=== PATIENT | male | born 1950 | race Caucasian/White ===

== ENCOUNTER 2016-11-28 19:45 | Emergency (ER) | payer BC ==
[~2016-11-28] VITALS: Ht 177.8 cm; Wt 110.0 kg
[2016-11-28 19:51] VITALS: TEMP 36.7; Ht 177.8 cm; Wt 110.0 kg
[2016-11-28 20:38] LABS: HEMATOCRIT 44.8 % (42-52); MEAN CELL VOLUME 88.9 fL (80-100); MEAN CORPUSCULAR HEMOGLOBIN 31.7 pg (25-34); MEAN CORPUSCULAR HGB CONC 35.7 g/dl (32-36); MEAN PLATELET VOLUME 10.9 fL (7.4-10.4); PLATELET COUNT 153 K/uL (130-400); RED BLOOD COUNT 5.04 M/uL (4.7-6.1); WHITE BLOOD COUNT 7.78 K/uL (4.8-10.8)
--- NOTE | 2016-11-28 20:39 | DIAGNOSTIC IMAGING REPORT ---
SINGLE VIEW CHEST CLINICAL HISTORY: Atypical chest pain. FINDINGS: An AP, portable, upright chest radiograph is obtained. No prior studies are available for comparison at the time of dictation. The examination is degraded by portable technique and patient rotation. The heart is mildly enlarged and there is atherosclerotic calcification of the thoracic aorta. The pulmonary vasculature is noncongested. Emphysema and interstitial thickening are identified. There is no airspace consolidation typical for pneumonia or large pleural effusion. Minimal atelectasis is seen at the left lung base. No pneumothorax is seen. The bony thorax is grossly intact. IMPRESSION: Cardiomegaly and emphysema with no acute cardiopulmonary abnormality. Electronically signed by: Tay Hendrickson M.D. 11/28/2016 8:37 PM Dictated Date/Time: 11/28/2016 8:36 PM
[2016-11-28 20:45] LABS: BUN/CREATININE RATIO 17.4 (10-20); CREATININE 1.5 mg/dl (0.60-1.40); POTASSIUM 3.8 mmol/L (3.5-5.1)
[2016-11-28 20:48] LABS: PROTHROMBIN TIME (PATIENT) 10.7 SECONDS (9.0-12.0)
[2016-11-28 20:49] LABS: ALB/GLOB RATIO 1.2 (0.9-2); CKMB/CK RATIO 1.6 (0-3.0)
[2016-11-28] MEDS ORDERED: TAMS0.4C38 PO (21:04)
[2016-11-28] MEDS ORDERED: ALLO300T2 PO (21:04)
[2016-11-28] MEDS ORDERED: SIMV20TA2 PO (21:04)
[2016-11-28] MEDS ORDERED: DUTA0.5C PO (21:04)
[2016-11-28] MEDS ORDERED: HYDR12.56 PO (21:04)
[2016-11-28] MEDS ORDERED: FLUT0.15 NAE (21:04)
[2016-11-28] MEDS ORDERED: OMEP40CA41 PO (21:04)
[2016-11-28] MEDS ORDERED: TERA1CAP63 PO (21:04)
--- NOTE | 2016-11-28 21:41 | EMERGENCY ROOM VISIT NOTE ---
History Report prepared by Tianna: Earl Cardozo Under the Supervision of: Dr. Tay Hicks M.D. First contact with patient: 21:24 Chief Complaint: CHEST PAIN Stated Complaint: CHEST PAIN Nursing Triage Summary: patient reports epigastric pain,patient reports recent diagnosis of esophageal varices with CT done a year ago with no liver issues History of Present Illness The patient is a 66 year old male who presents to the Emergency Room with complaints of intermittent chest pressure beginning two days prior to arrival. He currently rates his discomfort as a 2/10 in severity, but notes his discomfort is a 7/10 in severity during the episodes. The patient states he first experienced the discomfort two nights ago, when the chest pain woke him up from sleep and radiated to his back and lasted 1-2 hours. He notes he also experienced shortness of breath with the episode. The patient states he did not have any symptoms yesterday. He notes the chest pain returned this evening approximately thirty minutes after eating and lasted for fifteen minutes. The patient associates resolved chest pain that radiates to this back and resolved palpitations with today's symptoms. He states he had a scope performed two days ago, in which, varices in his throat were identified. He notes he has gallstones. He states he walks 2-3 miles a day without problems. The patient denies diaphoresis, shoulder pain, history of heart attacks, and a history of heart issues. Source of History: patient Onset: two days [employer] Position: chest Symptom Intensity: 2/10 Quality: pressure Timing: intermittent Associated Symptoms: + SOB, + back pain (chest pain radiating to his back), + chest pain, No diaphoresis Note: Associated symptoms: resolved palpitations. Review of Systems See HPI for pertinent positives & negatives. A total of 10 systems reviewed and were otherwise negative. Past Medical & Surgical Medical Problems: (1) Gall stones (2) Varices of esophagus determined by endoscopy Family History Patient reports no known family medical history. Social History Smoking Status: Never Smoker Marital Status: Occupation Status: employed Current/Historical Medications Scheduled Allopurinol (Zyloprim), 300 MG PO HS Dutasteride (Avodart), 0.5 MG PO QPM Hydrochlorothiazide (Hctz), 12.5 MG PO DAILY Omeprazole (Prilosec), 40 MG PO QAM Simvastatin (Zocor), 20 MG PO QPM Tamsulosin Hcl (Flomax), 0.4 MG PO HS Terazosin Hcl (Hytrin), 10 MG PO HS Scheduled PRN Fluticasone Propionate (Nasal) (Flonase Allergy Relief), 1 SPRAY YONI DAILY PRN for Nasal Congestion Allergies Coded Allergies: Penicillins (Verified Allergy, Unknown, RASH, 11/28/16) Physical Exam Vital Signs Date Time Temp Pulse Resp B/P Pulse Ox O2 Delivery O2 Flow Rate FiO2 11/28/16 22:28 88 18 162/115 98 Room Air 11/28/16 20:45 82 11/28/16 19:51 36.7 100 16 173/106 98 Room Air Physical Exam GENERAL: Patient is in no acute distress. HEENT: No acute trauma, normocephalic atraumatic, mucous membranes moist, no nasal congestion, no scleral icterus. NECK: No stridor, no adenopathy, no meningismus, trachea is midline. LUNGS: Clear to auscultation bilaterally, no wheeze, no rhonchi, breath sounds equal. HEART: Without murmurs gallops or rubs, regular rate and rhythm. ABDOMEN: Soft, nontender, bowel sounds positive, no hernias, no peritonitis. EXTREMITIES: No cyanosis or edema, full range of motion of all the joints without pain or difficulty, no signs for acute trauma. NEUROLOGIC: Oriented x 3, no acute motor or sensory deficits, no focal weakness. SKIN: No rash, no jaundice, no diaphoresis. Medical Decision & Procedures ER Provider Diagnostic Interpretation: X ray results and stated below per my interpretation and radiologist interpretation. Other radiology results and stated below per my review and radiologist interpretation: SINGLE VIEW CHEST CLINICAL HISTORY: Atypical chest pain. FINDINGS: An AP, portable, upright chest radiograph is obtained. No prior studies are available for comparison at the time of dictation. The examination is degraded by portable technique and patient rotation. The heart is mildly enlarged and there is atherosclerotic calcification of the thoracic aorta. The pulmonary vasculature is noncongested. Emphysema and interstitial thickening are identified. There is no airspace consolidation typical for pneumonia or large pleural effusion. Minimal atelectasis is seen at the left lung base. No pneumothorax is seen. The bony thorax is grossly intact. IMPRESSION: Cardiomegaly and emphysema with no acute cardiopulmonary abnormality. Electronically signed by: Tay Hendrickson M.D. 11/28/2016 8:37 PM ULTRASOUND RIGHT UPPER QUADRANT ABDOMEN CLINICAL HISTORY: Epigastric abdominal pain. COMPARISON STUDY: Abdominal CT dated 12/12/2015. TECHNIQUE: Real-time, grayscale, and color flow sonography of the right upper quadrant of the abdomen was performed. Images are reviewed in the transverse and longitudinal planes. FINDINGS: Liver: The liver is normal in size and demonstrates heterogeneously increased echotexture consistent with hepatic steatosis. There is no intrahepatic biliary ductal dilatation. The main portal vein is patent. Gallbladder: Shadowing gallstones are identified.. There is no gallbladder wall thickening or pericholecystic fluid. A sonographic Swift's sign is reportedly absent. The common bile duct measures up to 0.5 cm in diameter. Pancreas: Visualized portions of the pancreatic head and body are normal in appearance. The splenic vein is patent. Right kidney: Survey images of the right kidney demonstrate mild cortical atrophy. There is no hydronephrosis. There are right renal cysts. The largest measures 9.2 cm and arises from the lower pole. Ascites: None. IMPRESSION: 1. Cholelithiasis without sonographic evidence of acute cholecystitis. 2. Hepatic steatosis. Electronically signed by: Tay Hendrickson M.D. 11/28/2016 10:23 PM Laboratory Results 11/28/16 20:08 11/28/16 20:08 Test 11/28/16 20:08 11/28/16 20:52 Red Blood Count 5.04 M/uL (4.7-6.1) Mean Corpuscular Volume 88.9 fL (80-100) Mean Corpuscular Hemoglobin 31.7 pg (25-34) Mean Corpuscular Hemoglobin Concent 35.7 g/dl (32-36) RDW Standard Deviation 41.4 fL (36.4-46.3) RDW Coefficient of Variation 12.9 % (11.5-14.5) Mean Platelet Volume 10.9 fL (7.4-10.4) Prothrombin Time 10.7 SECONDS (9.0-12.0) Prothromb Time International Ratio 1.0 (0.9-1.1) Activated Partial Thromboplast Time 26.1 SECONDS (21.0-31.0) Partial Thromboplastin Ratio 1.0 Anion Gap 9.0 mmol/L (3-11) Est Creatinine Clear Calc Drug Dose 59.3 ml/min Estimated GFR () 55.0 Estimated GFR (Non- 47.5 BUN/Creatinine Ratio 17.4 (10-20) Calcium Level 9.0 mg/dl (8.5-10.1) Total Bilirubin 0.3 mg/dl (0.2-1) Aspartate Amino Transf (AST/SGOT) 20 U/L (15-37) Alanine Aminotransferase (ALT/SGPT) 46 U/L (12-78) Alkaline Phosphatase 98 U/L (45-117) Total Creatine Kinase 108 U/L (39-308) Creatine Kinase MB 1.7 ng/ml (0.5-3.6) Creatine Kinase MB Ratio 1.6 (0-3.0) Total Protein 7.3 gm/dl (6.4-8.2) Albumin 4.0 gm/dl (3.4-5.0) Globulin 3.3 gm/dl (2.5-4.0) Albumin/Globulin Ratio 1.2 (0.9-2) Lipase 532 U/L (73-393) Bedside Troponin I 0.000 ng/ml (0-0.045) Laboratory results reviewed by me. ECG Indication: chest pain Rate (beats per minute): 87 Rhythm: normal sinus Findings: no acute ischemic change, no ectopy ED Course 2123: The patient was evaluated in room B7. A complete history and physical exam was performed. 2241: Reevaluated the patient, and he feels well. He will talk to his doctor about his high blood pressure. The patient notes every time he goes to the doctor his blood pressure is high, but it is normal when he checks it on his machine at home. Discussed results and discharge instructions: He verbalized understanding and agreement. The patient is ready for discharge. Medical Decision The differential diagnoses include but are not limited to: biliary colic, acute cholecystitis, cardiac ischemia, gastritis, esophageal reflux, aortic dissection , PA. There is no leukocytosis or concerning anemia. No significant electrolyte abnormality, kidney failure, hepatitis. Pancreatic enzyme testing is slightly elevated but not high enough to diagnose pancreatitis. EKG shows a normal sinus rhythm, no acute ischemia. Chest film shows no mediastinal widening, pneumonia or pneumothorax. Gallbladder ultrasound shows gallstones without evidence for acute cholecystitis. The patient presents with pain in the epigastrium and lower chest moving to his back. These episodes have been nonexertional. The patient walks daily without difficulty. His last episode of pain occurred after eating. I think the patient's discomfort may related to the gallbladder and even the pancreas. He was reassured by his negative heart testing. Of note, he was hypertensive here, he states that this is always the case when he is at the doctor's and that things normalize at home when he checks his vitals with his blood pressure monitor. He does not want treatment for the elevated BP. The patient was reassured. He is being discharged to follow with his doctor and potentially surgery. If his symptoms worsen, become exertional, if he develops fever, he will return. Impression Primary Impression: Epigastric abdominal pain Scribe Attestation The scribe's documentation has been prepared under my direction and personally reviewed by me in its entirety. I confirm that the note above accurately reflects all work, treatment, procedures, and medical decision making performed by me. Departure Information Dispostion Home / Self-Care Referrals Miller Marie D.O. (PCP) Forms HOME CARE DOCUMENTATION FORM, IMPORTANT VISIT INFORMATION, Work Instructions Patient Instructions My [facility] [employer] Additional Instructions bland diet--crackers, soup, toast call your doctor and set up appt for recheck consider setting up appt with a surgeon return for worsening or persistent pain, return for exertional pain heart testing today was ok
--- NOTE | 2016-11-28 22:25 | DIAGNOSTIC IMAGING REPORT ---
ULTRASOUND RIGHT UPPER QUADRANT ABDOMEN CLINICAL HISTORY: Epigastric abdominal pain. COMPARISON STUDY: Abdominal CT dated 12/12/2015. TECHNIQUE: Real-time, grayscale, and color flow sonography of the right upper quadrant of the abdomen was performed. Images are reviewed in the transverse and longitudinal planes. FINDINGS: Liver: The liver is normal in size and demonstrates heterogeneously increased echotexture consistent with hepatic steatosis. There is no intrahepatic biliary ductal dilatation. The main portal vein is patent. Gallbladder: Shadowing gallstones are identified.. There is no gallbladder wall thickening or pericholecystic fluid. A sonographic Swift's sign is reportedly absent. The common bile duct measures up to 0.5 cm in diameter. Pancreas: Visualized portions of the pancreatic head and body are normal in appearance. The splenic vein is patent. Right kidney: Survey images of the right kidney demonstrate mild cortical atrophy. There is no hydronephrosis. There are right renal cysts. The largest measures 9.2 cm and arises from the lower pole. Ascites: None. IMPRESSION: 1. Cholelithiasis without sonographic evidence of acute cholecystitis. 2. Hepatic steatosis. Electronically signed by: Tay Hendrickson M.D. 11/28/2016 10:23 PM Dictated Date/Time: 11/28/2016 10:21 PM
[2016-11-28 22:28] VITALS: BP 162/115; PULSE 88; O2SAT 98
== END 2016-11-28 23:01 | disposition home or self-care (01) ==
LOC: C.EDB 19:46
DX: R10.13 Epigastric pain (principal)

== ENCOUNTER → 2017-01-23 | Outpatient (CLI) | payer BC ==
[~2017-01-23] MED LIST: ALLO300T2 PO; DUTA0.5C PO; FLUT0.15 NAE; HYDR12.56 PO; OMEP40CA41 PO; OPTIRAY 320 IV PRN; SIMV20TA2 PO; TAMS0.4C38 PO; TERA1CAP63 PO
--- NOTE | 2017-01-23 08:34 | DIAGNOSTIC IMAGING REPORT ---
CT SCAN OF THE CHEST AND ABDOMEN WITH IV CONTRAST CLINICAL HISTORY: Pulmonary nodule. Esophageal varices. Abdominal aortic aneurysm. COMPARISON STUDY: Abdominal CT dated 12/12/2015. Chest x-ray dated 11/28/2016. TECHNIQUE: Following the IV administration of 92 of Optiray 320, CT scan of the chest and abdomen was performed from the thoracic inlet to the pelvic inlet. Images are reviewed in the axial, sagittal, and coronal planes. IV contrast was administered without complication. Automated dose control exposure was utilized. CT DOSE: 1577.33 mGy.cm FINDINGS: CHEST: Thyroid: Imaged portions of the thyroid gland are normal in size and attenuation. Thoracic aorta: There is minimal atherosclerotic calcification of the thoracic aorta, which is normal in caliber and demonstrates standard 3-vessel arch anatomy. No dissection is seen. Pulmonary vasculature: The pulmonary trunk is normal in caliber. There are no filling defects identified in the central pulmonary vessels to indicate pulmonary was. Note that this examination was not protocoled for evaluation of the pulmonary arteries. Heart: The heart is normal in size and configuration, and there is trace pericardial effusion. The coronary arteries are densely calcified. Lungs and pleural spaces: There are trace pleural effusions. Dependent atelectasis is observed. There is no airspace consolidation typical for pneumonia. The trachea and central airways are clear. Punctate calcified granulomas are identified. Mediastinum: There is no mediastinal lymphadenopathy. Krista: Clear. Axillae: There is no axillary lymphadenopathy. Bony thorax: Mild degenerative change is noted throughout the thoracic spine. There are healed right-sided rib fractures. Arthritic change is noted in the shoulders. No lytic or blastic lesions are identified. ABDOMEN: Liver: The contrast-enhanced liver is normal in size, contour, and attenuation. There is no intrahepatic or ductal dilatation. The hepatic veins and portal veins are patent. Gallbladder: There are numerous calcified gallstones. There is no CT evidence of acute cholecystitis. Spleen: Normal in size and attenuation. Pancreas: Unremarkable. Adrenal glands: Unremarkable. Kidneys: The contrast enhanced kidneys demonstrate mild cortical atrophy and are without hydronephrosis. The kidneys enhance symmetrically. Numerous bilateral renal cysts measure up to 9 cm. Additional subcentimeter cortical hypodensities also likely represent cysts but are too small for definitive characterization. There are least 2 nonobstructing left renal calculi measuring up to 6 mm. Abdominal vasculature: There is moderate to advanced atherosclerotic calcification of the abdominal aorta. A small infrarenal abdominal aortic aneurysm measures 3.1 x 2.8 cm (AP x transverse). Stomach and bowel: There is a tiny hiatal hernia. No esophageal varices are identified. The stomach and duodenum are normal in configuration. A small duodenal diverticulum is incidentally noted. No bowel obstruction is seen. Colonic fecal retention is observed. Peritoneum: There is no intraperitoneal free air or abdominal ascites. Lymphadenopathy: None. Skeletal structures: No lytic or blastic lesions are seen. IMPRESSION: 1. Trace pleural effusions. The lungs are otherwise clear 2. Small hiatal hernia. No esophageal varices are identified as clinically queried. 3. There are no acute infectious or inflammatory findings in the abdomen. 4. Cholelithiasis. 5. There is a 3.1 x 2.8 cm infrarenal abdominal aortic aneurysm. 6. Nonobstructing left calculi. 7. Additional findings as above. Electronically signed by: Tay Hendrickson M.D. 01/23/2017 8:33 AM Dictated Date/Time: 01/23/2017 8:24 AM
== END | disposition home or self-care (01) ==
LOC: C.CTS 07:09
PROVIDERS: ATTEND Family Medicine
DX: I85.00 Esophageal varices without bleeding (principal); I71.4 Abdominal aortic aneurysm, without rupture; R91.1 Solitary pulmonary nodule; K44.9 Diaphragmatic hernia without obstruction or gangrene

== ENCOUNTER → 2017-04-03 | Outpatient (CLI) | payer BC ==
[~2017-04-03] MED LIST changes: -OPTIRAY 320 IV PRN
--- NOTE | 2017-04-03 10:31 | DIAGNOSTIC IMAGING REPORT ---
KUB HISTORY: N20.0 Nephrolithiasis COMPARISON: Abdomen and pelvis CT 01/23/2017. FINDINGS: The bowel gas pattern is unremarkable. There are no dilated loops of small bowel to suggest an obstruction. The right renal shadow is mostly obscured by overlying bowel gas. No definite right renal calculi. No ureteral calculi. There are few small stones within the left kidney with the largest measuring 4 mm. These are not significantly changed. Stable calcifications in the left deep pelvis suggestive of phleboliths. No pneumoperitoneum or pneumatosis. IMPRESSION: Stable left-sided nephrolithiasis. Electronically signed by: Cezar White M.D. 04/03/2017 10:30 AM Dictated Date/Time: 04/03/2017 10:29 AM
== END | disposition home or self-care (01) ==
LOC: C.RAD 09:44
PROVIDERS: ATTEND Urology
DX: N20.0 Calculus of kidney (principal)

== ENCOUNTER → 2017-08-07 | Outpatient (CLI) | payer BC ==
[2017-08-07 10:45] LABS: ALT/SGPT 37 U/L (12-78); AST/SGOT 18 U/L (15-37); BLOOD UREA NITROGEN 26 mg/dl (7-18); BUN/CREATININE RATIO 20.1 (10-20); CALCIUM 9.4 mg/dl (8.5-10.1); CARBON DIOXIDE 28 mmol/L (21-32); CHLORIDE 106 mmol/L (98-107); GLUCOSE 85 mg/dl (70-99); POTASSIUM 4.2 mmol/L (3.5-5.1); SODIUM 141 mmol/L (136-145)
[2017-08-07 10:48] LABS: ALB/GLOB RATIO 1.1 (0.9-2); ALKALINE PHOSPHATASE 96 U/L (45-117)
== END ==
LOC: C.LAB1850 09:40
PROVIDERS: ATTEND Internal Medicine
DX: K76.0 Fatty (change of) liver, not elsewhere classified (principal)

== ENCOUNTER → 2017-12-10 | Day surgery (SDC) | payer BC ==
[2017-12-05 07:38] VITALS: Ht 177.8 cm; Wt 95.5 kg
[~2017-12-10] VITALS: Ht 177.8 cm; Wt 95.5 kg
[~2017-12-10] MED LIST changes: -HYDR12.56 PO; +LIDOCAINE HCL 2% 2 ML VIAL (20MG/ML) ONE; +MIDAZOLAM HCL 1 MG/ML 2ML VIAL ONE; -OMEP40CA41 PO; +PROPOFOL IV EMULSION 10 MG/ML 20 ML VIAL IV ONE; +SODIUM CHLORIDE 0.9% 500ML 500 ML IV ONE
--- NOTE | 2017-12-10 09:42 | Endo History and Physical ---
History & Physical Date of Service: Dec 10, 2017. Chief Complaint: SCREENING Referring Physician: DR MCKINNEY History of Present Illness 67 yo CM who presents for screening colonoscopy. Past Surgical History Hx Cardiac Surgery: No Hx Internal Defibrillator: No Hx Pacemaker: No Hx Abdominal Surgery: Yes (APPY) Hx of Implantable Prosthesis: No Hx Post-Op Nausea and Vomiting: Yes Hx Cancer Surgery: No Hx Thoracic Surgery: No Hx Orthopedic: No Hx Urinary Tract Surgery: No Family History None Social History Smoking Status: Never Smoker Hx Substance Use: No Hx Alcohol Use: No Allergies Coded Allergies: Penicillins (Verified Allergy, Unknown, RASH, 12/10/17) Current Medications Reported Home Medications Medications Dose Route/Sig Max Daily Dose Days Date Category Hytrin (Terazosin HCl) 10 Mg Cap 10 Mg PO HS 11/28/16 Reported Flomax (Tamsulosin Hcl) 0.4 Mg Cap 0.4 Mg PO HS 11/28/16 Reported Zocor (Simvastatin) 20 Mg Tab 20 Mg PO HS 11/28/16 Reported Flonase Allergy Relief (Fluticasone Propionate (Nasal)) 50 Mcg/Act Spr 1 [place] YONI DAILY PRN 11/28/16 Reported Zyloprim (Allopurinol) 300 Mg Tab 300 Mg PO HS 11/28/16 Reported Avodart (Dutasteride) 0.5 Mg Cap 0.5 Mg PO HS 11/28/16 Reported Vital Signs Weight (Kilograms): 95.45 Height (Feet): 5 Height (Inches): 10 Date Time Temp Pulse Resp B/P (MAP) Pulse Ox O2 Delivery O2 Flow Rate FiO2 12/10/17 09:33 36.5 99 18 167/109 (128) 100 Room Air Physical Exam General Appearance: WD/WN, no apparent distress Respiratory/Chest: Auscultation: breath sounds normal Cardiovascular: Heart Auscultation: RRR Abdomen: Bowel Sounds: normal Inspection & Palpation: soft, non-distended, no tenderness, guarding & rebound Assessment and Plan Assessment: 67 yo CM who presents for screening colonoscopy. Plan: Proceed with colonoscopy.
--- NOTE | 2017-12-10 10:39 | Discharge Instructions ---
Endoscopy Patient Instructions Date / Procedure(s) Performed Dec 10, 2017. Colonoscopy Allergy Information Coded Allergies: Penicillins (Verified Allergy, Unknown, RASH, 12/10/17) Discharge Date / Findings Dec 10, 2017. Colon polyp Diverticulosis Internal hemorrhoids Medication Instructions OK to resume all medications today as prescribed Reported Home Medications Medications Dose Route/Sig Max Daily Dose Days Date Category Hytrin (Terazosin HCl) 10 Mg Cap 10 Mg PO HS 11/28/16 Reported Flomax (Tamsulosin Hcl) 0.4 Mg Cap 0.4 Mg PO HS 11/28/16 Reported Zocor (Simvastatin) 20 Mg Tab 20 Mg PO HS 11/28/16 Reported Flonase Allergy Relief (Fluticasone Propionate (Nasal)) 50 Mcg/Act Spr 1 [place] YONI DAILY PRN 11/28/16 Reported Zyloprim (Allopurinol) 300 Mg Tab 300 Mg PO HS 11/28/16 Reported Avodart (Dutasteride) 0.5 Mg Cap 0.5 Mg PO HS 11/28/16 Reported Provider Instructions Activity Restrictions - No exercising or heavy lifting for 24 hours. - Do not drink alcohol the day of the procedure. - Do not drive a car or operate machinery until the day after the procedure. - Do not make any important decisions or sign important papers in 24 hours after the procedure. Following Day: - Return to full activity which may include returning to work/school. Diet Start your diet with liquids and light foods (jello, soup, juice, toast). Then eat your usual diet if not nauseated. Treatment For Common After Affects For mild abdominal pain, bloating, or excessive gas: - Rest - Eat lightly - Lie on right side Follow-Up Information Follow-up with DR MCKINNEY as scheduled Anesthesia Information What You Should Know You have had a procedure that required some medicine to reduce anxiety and discomfort. This treatment is called moderate sedation. After receiving the treatment, you may be sleepy, but you will be able to breathe on your own. The effects of the treatment may last for several hours. Follow these instructions along with Activity/Diet recommendations noted above: * Do NOT do anything where dizziness or clumsiness would be dangerous. * Rest quietly at home today, then you can be up and about tomorrow. * Have a responsible person stay with you the rest of today. * You may have had an I.V. today. If so, you may take the dressing off later today. Recommendations Call your doctor if: * Trouble breathing * Continuous vomiting for more than 24 hours * Temperature above 101 degrees * Severe abdominal pain or bloating * Pain not relieved by pain medicine ordered * There is increased drainage or redness from any incision * A large amount of rectal bleeding greater than 2-3 tablespoons. (If you had a polyp/s removed or have hemorrhoids, a small amount of blood - from the rectum is to be expected.) * You have any unanswered questions or concerns. IN THE EVENT OF A SERIOUS EMERGENCY, GO TO THE NEAREST EMERGENCY ROOM Your discharge instructions were prepared by provider Travis Romero. Patient Instructions Signature Page Evangelina Mallory Patient (or Guardian) Signature/Date: I have read and understand the instructions given to me by my caregivers. Caregiver/RN/Doctor Signature/Date: The above-named patient and/or guardian has received patient instructions on this date. + Original Patient Signature Page (only) stays with chart. Please make copy for patient.
--- NOTE | 2017-12-10 10:41 | GI REPORT ---
Procedure Date: 12/10/2017 10:03 AM Procedure: Colonoscopy Indications: Screening for colorectal malignant neoplasm Medicines: Monitored Anesthesia Care Complications: No immediate complications. Estimated Blood Loss: Estimated blood loss: none. Procedure: Pre-Anesthesia Assessment: - Prior to the procedure, a History and Physical was performed, and patient medications and allergies were reviewed. The patient's tolerance of previous anesthesia was also reviewed. The risks and benefits of the procedure and the sedation options and risks were discussed with the patient. All questions were answered, and informed consent was obtained. Prior Anticoagulants: The patient has taken no previous anticoagulant or antiplatelet agents. ASA Grade Assessment: II - A patient with mild systemic disease. After reviewing the risks and benefits, the patient was deemed in satisfactory condition to undergo the procedure. After I obtained informed consent, the scope was passed under direct vision. Throughout the procedure, the patient's blood pressure, pulse, and oxygen saturations were monitored continuously. The scope was introduced through the anus and advanced to the terminal ileum. The colonoscopy was performed without difficulty. The patient tolerated the procedure well. The quality of the bowel preparation was good. The terminal ileum, ileocecal valve, appendiceal orifice, and rectum were photographed. Findings: The perianal and digital rectal examinations were normal. A 8 mm polyp was found in the ascending colon. The polyp was sessile. The polyp was removed with a hot snare. Resection and retrieval were complete. Multiple small-mouthed diverticula were found in the sigmoid colon. Non-bleeding internal hemorrhoids were found during retroflexion. The hemorrhoids were small. Impression: - One 8 mm polyp in the ascending colon, removed with a hot snare. Resected and retrieved. - Diverticulosis in the sigmoid colon. - Non-bleeding internal hemorrhoids. Recommendation: - Resume previous diet. - Continue present medications. - Repeat colonoscopy for surveillance based on pathology results. - Return to primary care physician as previously scheduled. Travis Romero, DO 12/10/2017 10:41:15 AM This report has been signed electronically. Note Initiated On: 12/10/2017 10:03 AM I attest to the content of the Intraoperative Record and orders documented therein, exceptions below
--- NOTE | 2017-12-10 10:52 | Anesthesiology Progress Note ---
Anesthesia Post Op Note Date & Time Dec 10, 2017 at 10:52 Vital Signs Pain Intensity: 0 Vital Signs Past 12 Hours Date Time Temp Pulse Resp B/P (MAP) Pulse Ox O2 Delivery O2 Flow Rate FiO2 12/10/17 10:46 88 18 117/78 (91) 94 Room Air 12/10/17 09:33 36.5 99 18 167/109 (128) 100 Room Air Notes Mental Status: alert / awake / arousable, participated in evaluation Pt Amnestic to Procedure: Yes Nausea / Vomiting: adequately controlled Pain: adequately controlled Airway Patency, RR, SpO2: stable & adequate BP & HR: stable & adequate Hydration State: stable & adequate Anesthetic Complications: no major complications apparent
[2017-12-10 11:16] VITALS: BP 140/87; PULSE 75; O2SAT 98
== END | disposition home or self-care (01) ==
LOC: C.GI 09:08
PROVIDERS: ATTEND Internal Medicine
DX: Z12.11 Encounter for screening for malignant neoplasm of colon (principal); I10 Essential (primary) hypertension; E78.5 Hyperlipidemia, unspecified; I71.4 Abdominal aortic aneurysm, without rupture; K44.9 Diaphragmatic hernia without obstruction or gangrene; I85.00 Esophageal varices without bleeding; M10.9 Gout, unspecified; Z90.89 Acquired absence of other organs; Z88.0 Allergy status to penicillin; D12.2 Benign neoplasm of ascending colon; K57.30 Diverticulosis of large intestine without perforation or abscess without bleeding; K64.8 Other hemorrhoids

== ENCOUNTER → 2018-01-08 | Outpatient (CLI) | payer BC ==
[~2018-01-08] MED LIST changes: -LIDOCAINE HCL 2% 2 ML VIAL (20MG/ML) ONE; -MIDAZOLAM HCL 1 MG/ML 2ML VIAL ONE; -PROPOFOL IV EMULSION 10 MG/ML 20 ML VIAL IV ONE; -SODIUM CHLORIDE 0.9% 500ML 500 ML IV ONE
--- NOTE | 2018-01-08 09:48 | DIAGNOSTIC IMAGING REPORT ---
KUB HISTORY: Follow-up study in a patient with nephrolithiasis COMPARISON: KUB 04/03/2017, CT 01/23/2017 FINDINGS: The bowel gas pattern is non-obstructive. There is no organomegaly. Left-sided nephrolithiasis redemonstrated which appears unchanged with calculi measuring up to 4 mm. Bilateral renal shadows are partially obscured by bowel gas. No definite right-sided nephrolithiasis or ureteral calculi. No pneumoperitoneum or pneumatosis. No fracture. Degenerative changes are noted about the pelvis and lumbar spine. Cholelithiasis. IMPRESSION: 1. Unchanged left-sided nephrolithiasis without ureteral calculi identified. 2. Cholelithiasis. Electronically signed by: Jeff Waller M.D. 01/08/2018 9:47 AM Dictated Date/Time: 01/08/2018 9:44 AM
== END | disposition home or self-care (01) ==
LOC: C.RAD 09:23
PROVIDERS: ATTEND Urology
DX: N20.0 Calculus of kidney (principal); K80.20 Calculus of gallbladder without cholecystitis without obstruction

== ENCOUNTER → 2018-02-07 | Outpatient (CLI) | payer BC ==
--- NOTE | 2018-02-07 08:35 | DIAGNOSTIC IMAGING REPORT ---
ABDOMINAL AORTIC ULTRASOUND CLINICAL HISTORY: Follow-up of abdominal aortic aneurysm. COMPARISON STUDY: Abdomen and pelvis CT 01/23/2017. FINDINGS: The proximal abdominal aorta measures 2.7 x 2.7 cm, mid aorta 1.9 x 1.9 cm, distal aorta 3.0 x 2.9 cm. This small aneurysm is similar in size. The iliac arteries remain normal in caliber. IMPRESSION: No change in the small distal abdominal aortic aneurysm measuring 3.0 x 2.9 cm. Electronically signed by: Cezar White M.D. 02/07/2018 8:34 AM Dictated Date/Time: 02/07/2018 8:32 AM
== END | disposition home or self-care (01) ==
LOC: C.ULTR 07:47
PROVIDERS: ATTEND Family Medicine
DX: I71.4 Abdominal aortic aneurysm, without rupture (principal)

== ENCOUNTER → 2018-05-28 | Outpatient (CLI) | payer BC ==
--- NOTE | 2018-05-28 12:34 | DIAGNOSTIC IMAGING REPORT ---
CERVICAL SPINE 7 views CLINICAL HISTORY: Neck pain COMPARISON STUDY: No previous studies for comparison. FINDINGS: There is a slight reversal the normal cervical lordosis. There are degenerative changes present most pronounced the C4-5, and C5-6 levels. At the C5-6 level, there is anterior posterior osteophyte formation as well as uncovertebral joint spurring. IMPRESSION: 1. No acute fractures identified 2. Moderate degenerative changes the C4-5 and C5-6 levels. Electronically signed by: Sonny Smith M.D. 05/28/2018 12:33 PM Dictated Date/Time: 05/28/2018 12:31 PM
== END | disposition home or self-care (01) ==
LOC: C.RAD1850 12:02
PROVIDERS: ATTEND Family Medicine
DX: M47.812 Spondylosis without myelopathy or radiculopathy, cervical region (principal)